=== PATIENT | male | born 1930 | race Caucasian/White ===

== ENCOUNTER → 2017-03-06 | Outpatient (CLI) | payer MEDICARE, OTHER ==
[~2017-03-06] MED LIST: AMLODIPINE-BENA1 CAP PO; FISH OIL SOFTGE1 CA1 PO; LEVOTHROID100 MC1 PO; LIPITOR20 MG PO; LORTAB 7.5-5001 TAB PO; MULTI-DAY1 TAB PO; OCUVITE TABLET1 TA1 PO; PHENERGAN25 MG PO; TAMSULOSIN HCL0.4 MG PO; TOPROL XL100 MG PO
--- NOTE | ~2017-03-06 | US37 ---
[facility] A Service of [facility] RADIOLOGY TEXT RESULTS PATIENT: JOANIE NAZARIO LOCATION: CNIV : 31 UNIT #: [id number] AGE: [address]: Geraldo Calvo MD SEX: M ORDER DR: [id number] [place], [place] [address] [id number] O MR#: [id number] Acc #: [id number] NAME: JOANIE NAZARIO : 1930 SEX: M STUDY DATE/TIME: 03/06/2017 12:55 UNIT: CNIV ROOM: STUDY DESCRIPTION: US Carotid W/Doppler Bilateral Attending Physician: Geraldo Calvo M.D. Referring Physician: Geraldo Calvo M.D. Ordering Physician: Geraldo Calvo M.D. Primary Care Physician: Geraldo Calvo M.D. MEDICAL IMAGING REPORT This report is preliminary unless electronic signature is present EXAM Bilateral carotid Doppler HISTORY Dizziness. Loss of balance. FINDINGS The right common, internal and external carotid arteries are patent with mild plaque noted at the carotid bulb and internal carotid artery. Velocity of the common carotid artery is 78 cm/sec. Peak systolic velocity of the right proximal internal carotid artery is 72 cm/sec with an end-diastolic velocity of 14 cm/sec for a ICA:CCA ratio of 0.9. External carotid artery had a velocity of 58 cm/sec. The vertebral artery is visualized with antegrade flow. The left common, internal and external carotid arteries are patent. There is mild plaque in the carotid bulb and internal carotid artery. Velocity of the common carotid artery is 63 cm/sec. Peak systolic velocity left proximal internal carotid artery is 64 cm/sec with an end-diastolic velocity of 16 cm/sec for a ICA:CCA ratio of 1.0. External carotid artery had a velocity of 53 cm/sec. The vertebral artery is visualized with antegrade flow. IMPRESSION 1. Less than 50% stenosis of the right and left internal carotid arteries. 2. No stenosis of the external carotid arteries. 3. Antegrade flow of the vertebral arteries. Dictated by... [facility] A Service of [facility] & [facility] RADIOLOGY TEXT RESULTS PATIENT: JOANIE NAZARIO LOCATION: [facility] #: [id number] : [birth year] UNIT #: [id number] AGE: [address]: Geraldo Calvo MD SEX: M ORDER DR: Sera Cancino M.D. THIS IS AN ELECTRONICALLY VERIFIED REPORT Sera Cancino M.D. at 03/07/2017 8:50 AM FPN/pcl TD: 03/06/2017 17:57 JOB #: [id number] MEDICAL IMAGING REPORT Page 1 of 1 COPY
== END | disposition home or self-care (01) ==
LOC: CMRI 03-01 10:00 → CNIV 12:10 → CMRI 12:30
DX: R26.89 Other abnormalities of gait and mobility (principal); I65.23 Occlusion and stenosis of bilateral carotid arteries
CPT/HCPCS: 93880

== ENCOUNTER → 2017-03-08 | Outpatient (CLI) | payer MEDICARE, OTHER ==
--- NOTE | ~2017-03-08 | MR18 ---
[facility] A Service of [facility] RADIOLOGY TEXT RESULTS PATIENT: JOANIE NAZARIO LOCATION: CMRI : 31 UNIT #: [id number] AGE: [address]: Geraldo Calvo MD SEX: M ORDER DR: [id number] [facility] [address] [place], [place] [address] [id number] O MR#: [id number] Acc #: [id number] NAME: JOANIE NAZARIO. : 1930 SEX: M STUDY DATE/TIME: 03/08/2017 15:47 UNIT: CMRI ROOM: STUDY DESCRIPTION: MR Brain Wo Contrast Attending Physician: Geraldo Calvo M.D. Ordering Physician: Geraldo Calvo M.D. Primary Care Physician: Geraldo Calvo M.D. MRI CENTER REPORT This report is preliminary unless electronic signature is present. EXAM Brain MR without contrast, 03/08/2017 PROCEDURE Routine unenhanced brain MRI COMPARISON None CLINICAL HISTORY Loss of balance and dizziness for 6 years. FINDINGS There is no MR evidence of acute ischemia. There is no MR evidence of intracranial hemorrhage, acute or chronic. There is volume loss and moderate white matter change, nonspecific but fairly typical of chronic small vessel disease. There is no hydrocephalus or extraaxial fluid collection and normal flow voids are seen in the cerebral vessels. Bone marrow signal is normal. The extracranial soft tissue structures are normal as well. IMPRESSION Moderate chronic small vessel disease and volume loss but no hemorrhage or mass or acute ischemia, no hydrocephalus or extraaxial fluid collection or other acute finding. Dictated by... Maynor Contreras M.D. THIS IS AN ELECTRONICALLY VERIFIED REPORT Maynor Contreras M.D. at 03/13/2017 5:20 PM DUGLAS/[facility] A Service of [facility] RADIOLOGY TEXT RESULTS PATIENT: JOANIE NAZARIO LOCATION: CMRI : 31 UNIT #: [id number] AGE: [address]: Geraldo Calvo MD SEX: M ORDER DR: TD: 03/12/2017 08:30 JOB #: [id number] MRI CENTER REPORT Page 1 of 1 COPY
== END | disposition home or self-care (01) ==
LOC: CMRI 15:10
DX: R26.89 Other abnormalities of gait and mobility (principal); I73.9 Peripheral vascular disease, unspecified
CPT/HCPCS: 70551

== ENCOUNTER 2017-04-08 14:22 | Emergency (ER) | payer MEDICARE, OTHER ==
--- NOTE | ~2017-04-08 | US85 ---
[facility] A Service [facility] RADIOLOGY TEXT RESULTS PATIENT: JOANIE NAZARIO LOCATION: SED : 31 UNIT #: [id number] AGE: [address]: Montrell Painting MD SEX: M ORDER DR: [id number] [address] [id number] E MR#: [id number] Acc #: [id number] NAME: JOANIE NAZARIO. : 1930 SEX: M STUDY DATE/TIME: 04/08/2017 16:31 UNIT: SED ROOM: STUDY DESCRIPTION: LE Veins Unilat or Ltd Stdy Attending Physician: Montrell Painting M.D. Ordering Physician: Montrell Painting M.D. Primary Care Physician: Geraldo Calvo M.D. MEDICAL IMAGING REPORT This report is preliminary unless electronic signature is present. EXAM Lower extremity ultrasound for DVT on the right, 04/08/2017. HISTORY Large hematoma on the anterior left calf for 2 days. Pain and swelling. TECHNIQUE Santos-scale, color Doppler, and spectral analysis of the right lower extremity was performed. COMPARISON We have no comparisons. FINDINGS There is no evidence of DVT in the right lower extremity. Edematous change of the right lower extremity present. IMPRESSION Negative study. No DVT in the right lower extremity. Dictated by... Montrell Nunez M.D. THIS IS AN ELECTRONICALLY VERIFIED REPORT Montrell Nunez M.D. at 04/08/2017 11:16 PM VIVIAN/martita TD: 04/08/2017 19:51 JOB #: [id number] [facility] A Service [facility] RADIOLOGY TEXT RESULTS PATIENT: JOANIE NAZARIO LOCATION: SED : 31 UNIT #: [id number] AGE: [address]: Montrell Painting MD SEX: M ORDER DR: MEDICAL IMAGING REPORT Page 1 of 1
[2017-04-08 15:44] LABS: BASOPHIL# 0.1 X10e3 (0-0.3); BASOPHIL% 0.8 % (0-2.5); EOSINOPHIL# 0.1 X10e3 (0-0.7); EOSINOPHIL% 0.4 % (0.0-7.0); HEMATOCRIT 39.8 % (38.0-50.0); HEMOGLOBIN 13.1 gm/dL (13.0-16.0); LYMPHOCYTE# 1.2 X10e3 (1.0-3.5); LYMPHOCYTE% 8.9 % (17.0-45.0); MEAN CELL VOLUME 91.6 FL (83-96); MEAN CORPUSCULAR HEMOGLOBIN 30.2 PG (28-34); MEAN PLATELET VOLUME 8.7 FL (6.5-11.5); MONOCYTE# 0.9 X10e3 (0-1.0); MONOCYTE% 6.7 % (3.0-12.0); NEUTROPHIL# 11.6 X10e3 (1.5-7.1); NEUTROPHIL% 83.2 % (40-75); PLATELET COUNT 122 X10e3 (140-420); RED BLOOD COUNT 4.34 X10e (3.90-5.60); RED CELL DISTRIBUTION WIDTH 14.9 % (11.0-15.5)
[2017-04-08 15:49] LABS: DIFF IND NO
[2017-04-08 16:04] LABS: BUN/CREATININE RATIO 16.87; CREATININE SERUM 1.6 mg/dL (0.6-1.4); GLOM FILT RATE Estimated 38.7 mL/min (>60); POTASSIUM 3.9 mmol/L (3.5-5.1)
[2017-04-08 16:19] LABS: URINE SOURCE CLEAN CATCH
[2017-04-08 16:24] LABS: URINE APPEARANCE CLEAR; URINE BILIRUBIN NEG (NEG); URINE BLOOD 3+ (NEG); URINE COLOR YELLOW; URINE GLUCOSE NEG (NORM); URINE KETONE NEG (NEG); URINE LEUKOCYTE ESTERASE NEG (NEG); URINE NITRATE NEG (NEG); URINE PROTEIN 2+ (NEG); URINE SPECIFIC GRAVITY 1.025 (1.003-1.035)
[2017-04-08 16:29] LABS: MICRO INDICATED? YES
[2017-04-08 16:31] LABS: CULTURE INDICATED? NO; URINE BACTERIA NEG (NEG); URINE MUCUS PRESENT; URINE RBC 50-100 /[HPF] (0-2); URINE SQUAMOUS EPITHELIAL CELL FEW /[HPF]
[2017-04-08 16:58] LABS: POC - CKMB <1.0 ng/mL (0.0-7.9); POC - MYOGLOBIN 71.8 ng/mL (0.0-169.0); POC - TROPONIN <0.05 ng/mL (<=0.05)
== END 2017-04-08 18:11 | disposition home or self-care (01) ==
LOC: SED 14:22
PROVIDERS: Emergency Medicine
DX: L03.115 Cellulitis of right lower limb (principal); I10 Essential (primary) hypertension; E03.9 Hypothyroidism, unspecified; Z79.899 Other long term (current) drug therapy
CPT/HCPCS: 36415; 80048; 81003; 82553; 83874; 84484; 85025; 93971; 96361; 96365; 99284; J0295